=== PATIENT | female | born 1950 | race American Indian/Alaskan Native ===

== ENCOUNTER 2018-09-06 09:58 | Emergency (ER) | payer OTHER ==
[~2018-09-06] VITALS: Ht 152.4 cm; Wt 59.4 kg
[2018-09-06 10:16] VITALS: TEMP 97.1
[2018-09-06 12:38] VITALS: BP 155/74
== END 2018-09-06 12:38 | disposition home or self-care (01) ==
LOC: ED 09:58
DX: S33.5XXA Sprain of ligaments of lumbar spine, initial encounter (principal); M51.37 Other intervertebral disc degeneration, lumbosacral region; R10.9 Unspecified abdominal pain
CPT/HCPCS: 81000; 99283

== ENCOUNTER 2022-10-19 09:28 | Outpatient (CLI) | payer OTHER | END 2022-10-19 19:19 | disposition home or self-care (01) | LOC: RAD 09:28 | PROVIDERS: ATTEND Nurse Practitioner Family | DX: R07.81 Pleurodynia (principal) ==